=== PATIENT | female | born 1990 | race African-American/Black ===

== ENCOUNTER 2019-08-21 13:08 | Emergency (ER) | payer BC, OTHER, SELFPAY ==
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
--- NOTE | 2019-08-21 13:35 | PC.NURSE ---
[facility] hotline called; advocate will be enroute.
[2019-08-21 14:06] VITALS: BP 116/85; PULSE 88; RESP 14; TEMP 36.6; O2SAT 99
[2019-08-21] MEDS: ONDANSETRON HCL ODT 4 MG TABLET (16:45)
[2019-08-21] MEDS: cefTRIAXone 250 MG VIAL (16:55)
[2019-08-21] MEDS: AZITHROMYCIN 250 MG TABLET 1000 MG (16:55)
[2019-08-21] MEDS: metroNIDAZOLE 250 MG TABLET 2000 MG (16:55)
--- NOTE | 2019-08-21 17:00 | PC.NURSE ---
Pt. declined ECP, HIV prophylaxis and all testing.
[2019-08-21 17:50] VITALS: RESP 14
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
== END 2019-08-21 17:50 | disposition home or self-care (01) ==
PROVIDERS: Emergency Provider Emergency Medicine
DX: Z04.41 Encounter for examination and observation following alleged adult rape (principal)
CPT/HCPCS: 96372; 99285; A9270; J0696